=== PATIENT | male | born 2000 | race Caucasian/White ===

== ENCOUNTER 2022-11-29 21:44 | Emergency (ER) | payer OTHER ==
[2022-11-29 22:59] LABS: BASO % 0.4 % (0-2.0); EOS % 2.4 % (0-4.5); HEMATOCRIT 40.5 % (35.4-49); HEMOGLOBIN 14.1 GM/dL (11.7-16.9); LYMPH % 24.9 % (8-40); MCH 31.6 pg (25.7-33.7); MCHC 34.8 g/dl (32.0-35.9); MEAN CELL VOLUME 90.7 fl (80-96); MEAN PLT VOLUME 7.2 fl (7.5-11.1); MONO % 7.2 % (3.8-10.2); NEUT % 65.1 % (42.8-82.8); PLATELET COUNT 236 10^3/uL (134-434); RBC 4.47 M/mm3 (4.00-5.60); WHITE BLOOD COUNT 10.2 K/mm3 (4.0-10.0)
[2022-11-29 23:25] LABS: POTASSIUM 3.8 mmol/L (3.5-5.1)
[2022-11-29 23:27] LABS: CALCIUM 9.8 mg/dL (8.5-10.1)
[2022-11-29 23:28] LABS: ALBUMIN 4.1 g/dl (3.4-5.0); BLOOD UREA NITROGEN 8.9 mg/dL (7-18)
[2022-11-29 23:31] LABS: CREATININE 0.8 mg/dL (0.55-1.3)
[2022-11-29 23:32] LABS: TOT PROT 7.7 g/dl (6.4-8.2)
== END 2022-11-29 23:58 | disposition left against medical advice (07) ==
LOC: JERFT 21:44
DX: R07.89 Other chest pain (principal); R00.2 Palpitations; R42 Dizziness and giddiness; F17.229 Nicotine dependence, chewing tobacco, with unspecified nicotine-induced disorders; Z20.822 Contact with and (suspected) exposure to COVID-19
CPT/HCPCS: 0241U-QW; 36415; 71046-TC-FY; 80053; 84484; 85025; 93005; 93010; 99285-25